=== PATIENT | male | born 1980 | race Caucasian/White ===

== ENCOUNTER 2020-09-17 20:41 | Observation (INO) | payer BC ==
[~2020-09-17] VITALS: Ht 185.4 cm; Wt 98.0 kg
[2020-09-17 20:49] VITALS: BP 124/85
[2020-09-17 22:01] LABS: ABSOLUTE BASOPHILS 0.1 thou/uL (0.0-0.2); ABSOLUTE EOSINOPHILS 0.4 thou/uL (0.0-0.7); ABSOLUTE LYMPHOCYTES 3.5 thou/uL (0.8-5.3); ABSOLUTE MONOCYTES 1.1 thou/uL (0.0-1.2); ABSOLUTE NEUTROPHILS 8.6 thou/uL (1.6-8.1); BASOPHILS 0.9 %; EOSINOPHILS 2.7 %; LYMPHOCYTES 25.5 %; MCH 30.4 pg (26.0-34.0); MCHC 33.4 g/dL (28.0-37.0); MCV 91.1 fL (80.0-100.0); MONOCYTES 8.2 %; MPV 7.4 fl. (7.2-11.1); NUCLEATED RBCS 0 /100WBC; PLATELET COUNT* 368 thou/uL (150-400); POLYS 62.7 %; RBC 4.95 mil/uL (4.50-6.00); RDW-CV 13.6 % (10.5-14.5); WBC 13.7 thou/uL (4.0-11.0)
[2020-09-17 22:18] LABS: CALCIUM 8.5 mg/dL (8.5-10.1); CREATININE 0.9 mg/dL (0.6-1.3); POTASSIUM 4.6 mmol/L (3.5-5.1)
[2020-09-17 22:23] LABS: ALBUMIN 3.7 g/dL (3.4-5.0); TOTAL BILIRUBIN 0.2 mg/dL (<0.1-1.0); TOTAL PROTEIN 7.1 g/dL (6.4-8.2)
--- NOTE | 2020-09-18 00:06 | NUR ---
PT LP DONE LAYING FLAT PER DR BRADFORD
[2020-09-18 00:17] LABS: CSF GLUCOSE 70 mg/dl (40-70); CSF PROTEIN 25.6 mg/dl (15-45)
[2020-09-18 00:22] LABS: CSF CLARITY CLEAR; CSF COLOR COLORLESS; VOLUME 3.5 ml
[2020-09-18 01:49] LABS: CSF RBC 3 /mm3; CSF WBC 1 /mm3 (0-10)
[2020-09-18 02:03] VITALS: BP 123/54
[2020-09-18 02:08] VITALS: BP 119/54
--- NOTE | 2020-09-18 04:31 | NUR ---
PT ADMIT TO ROOM 214 AT 0200, ALERT ORIENTED PT WITH PAIN IN NECK AND HEAD. MORPHINE GIVEN FOR PAIN. MED/SURG STATUS. ON RA. ABX GIVEN PRIMARY IVF NS AT 100MLS/HR. RESTING QUIETLY IN ROOM
[2020-09-18 08:00] VITALS: BP 119/63
[2020-09-18] MEDS ORDERED: ROBAXIN 750 MG750 MG PO (10:50)
[2020-09-18] MEDS ORDERED: HYDROCODON-ACE1 EAC7 PO (10:50)
[2020-09-18 11:02] VITALS: BP 119/54
--- NOTE | 2020-09-18 14:21 | NUR ---
ASSUMED CARE OF PATIENT THIS AM AT 0730. PATIENT IS ALERT AND ORIENTED X 4. HE C/O NECK PAIN AND DECREASED ABILITY TO TURN HIS HEAD. PATIENT MEDICATED FOR C/O PAIN. DR DACOSTA IN TO ROUND AND ORDERS WRITTEN. PATIENT GIVEN MEDCIATIONS ORDERED. LIDOCAINE PATCH APPLIED. ORDERS WRITTEN TO DISCHARGE PATIENT TO HOME.
== END 2020-09-18 15:25 | disposition home or self-care (01) ==
LOC: M.ERS 20:41 → M.TBA-ER 09-18 00:39 → M.2W 09-18 01:57
PROVIDERS: Personal Emergency Response Attendant; ADMIT Internal Medicine; ATTEND Internal Medicine
DX: M54.2 Cervicalgia (principal); R65.10 Systemic inflammatory response syndrome (SIRS) of non-infectious origin without acute organ dysfunction; D72.829 Elevated white blood cell count, unspecified; F17.290 Nicotine dependence, other tobacco product, uncomplicated; Z79.899 Other long term (current) drug therapy; Z20.828 Contact with and (suspected) exposure to other viral communicable diseases

== ENCOUNTER 2020-09-22 23:08 | Emergency (ER) | payer BC ==
[~2020-09-22] VITALS: Ht 185.4 cm; Wt 93.0 kg
[~2020-09-22 23:08] MED LIST: HYDROCODON-ACE1 EAC7 PO; ROBAXIN 750 MG750 MG PO
[2020-09-22 23:42] LABS: ABSOLUTE BASOPHILS 0.1 thou/uL (0.0-0.2); ABSOLUTE EOSINOPHILS 0.2 thou/uL (0.0-0.7); ABSOLUTE MONOCYTES 1.1 thou/uL (0.0-1.2); ABSOLUTE NEUTROPHILS 10.8 thou/uL (1.6-8.1); BASOPHILS 0.6 %; EOSINOPHILS 1.3 %; HEMATOCRIT 46.3 % (42.0-52.0); HEMOGLOBIN 15.7 gm/dL (14.0-18.0); LYMPHOCYTES 19.6 %; MCH 30.7 pg (26.0-34.0); MCV 90.3 fL (80.0-100.0); MONOCYTES 7.1 %; MPV 7.4 fl. (7.2-11.1); NUCLEATED RBCS 0 /100WBC; PLATELET COUNT* 369 thou/uL (150-400); POLYS 71.4 %; RBC 5.13 mil/uL (4.50-6.00); RDW-CV 13.5 % (10.5-14.5); WBC 15.2 thou/uL (4.0-11.0)
[2020-09-22 23:46] LABS: CALCIUM 8.4 mg/dL (8.5-10.1); CREATININE 0.9 mg/dL (0.6-1.3); POTASSIUM 3.8 mmol/L (3.5-5.1)
[2020-09-22 23:51] LABS: ALBUMIN 3.7 g/dL (3.4-5.0); TOTAL BILIRUBIN 0.3 mg/dL (<0.1-1.0); TOTAL PROTEIN 7.4 g/dL (6.4-8.2)
[2020-09-23 00:26] LABS: INFLUENZA A ANTIGEN Negative (Negative); INFLUENZA B ANTIGEN Negative (Negative)
[2020-09-23] MEDS ORDERED: ULTRAM 50MG TAB50 MG PO (01:38)
[2020-09-23] MEDS ORDERED: BUTALB-APAP-CA1 EACH PO (01:38)
[2020-09-23] MEDS ORDERED: TORADOL 10 MG T10 MG PO (01:38)
[2020-09-23 02:00] VITALS: BP 130/70
== END 2020-09-23 02:04 | disposition home or self-care (01) ==
LOC: M.ERS 23:08
PROVIDERS: Personal Emergency Response Attendant
DX: R51.9 Headache, unspecified (principal); R11.10 Vomiting, unspecified; Z20.828 Contact with and (suspected) exposure to other viral communicable diseases